=== PATIENT | female | born 1990 | race African-American/Black ===

== ENCOUNTER 2022-11-05 05:35 | Day surgery (SDC) | payer MEDICAID ==
[2022-10-30 14:56] LABS: ALBUMIN 3.4 G/DL (3.4-5.0); ALBUMIN/GLOBULIN RATIO 0.7 (1.1-1.5); ALKALINE PHOSPHATASE 86 IU/L (46-116); BLOOD UREA NITROGEN 11 MG/DL (7-18); CALCIUM 9.2 MG/DL (8.5-10.1); CHLORIDE 106 MMOL/L (99-107); CREATININE 0.55 MG/DL (0.40-0.90); PRE OP ALT 19 U/L (30-65); PRE OP ANION GAP 7 (8-16); PRE OP AST 17 U/L (10-37); PRE OP BILIRUB, TOTAL 0.3 MG/DL (0.0-1.0); PRE OP GLUCOSE 131 MG/DL (70-104); PRE OP POTASSIUM 3.8 MMOL/L (3.4-5.1); PRE OP PROTIME 10.8 SECONDS (9.0-12.0); PRE OP SODIUM 141 MMOL/L (135-145); TOTAL PROTEIN 8.1 G/DL (6.4-8.2); eGFR > 90 ML/MIN
[2022-10-30 14:58] LABS: CLARITY,URINE CLEAR (Clear); COLOR,URINE YELLOW (Yellow); GLUCOSE, URINE NEGATIVE (Neg); KETONES,URINE 40 mg/dl (Neg); LEUKOCYTE ESTERASE ,URINE NEGATIVE (Neg); NITRITES, URINE NEGATIVE (Neg); OCCULT BLOOD,URINE SMALL (Neg); PH,URINE 5.5 (4.8-8.0); PROTEIN,URINE NEGATIVE (Neg); UROBILINOGEN,URINE 0.2 E.U/dL (0.2-1.0)
[2022-10-30 14:59] LABS: UA COLLECTION TYPE CLN CATCH MIDSTREAM
[2022-10-30 14:59] LABS: BASOPHILS # (AUTO) 0.1 X10'3 (0-0.2); BASOPHILS % (AUTO) 0.7 % (0-1); EOSINOPHILS # (AUTO) 0.1 X10'3 (0-0.9); EOSINOPHILS % (AUTO) 0.7 % (0-6); LYMPHOCYTES # (AUTO) 3.1 X10'3 (1.1-4.8); LYMPHOCYTES % (AUTO) 31.5 % (21-51); MEAN CORPUSCULAR HGB CONC 32.4 g/dL (33.0-36.5); MEAN CORPUSCULAR VOLUME 89.3 FL (78-98); MEAN PLATELET VOLUME 7.8 FL (7.4-10.4); MONOCYTES # (AUTO) 0.6 X10'3 (0-0.9); MONOCYTES % (AUTO) 6.1 % (2-12); NEUTROPHILS # (AUTO) 5.9 X10'3 (1.8-7.7); PRE OP HEMATOCRIT 41.2 % (35.0-45.0); PRE OP HEMOGLOBIN 13.4 g/dL (12.0-16.0); PRE OP PLATELET COUNT 383 X10'3 (140-440); RED BLOOD COUNT 4.62 X10'6 (4.20-5.60); RED CELL DISTRIBUTION WIDTH 13.7 % (11.5-14.5)
[2022-10-30 15:04] LABS: BACTERIA,URINE NONE SEEN /HPF (Neg); MUCUS STRANDS FEW /LPF (Neg); RBC,URINE NONE SEEN /HPF (0-2); SQUAMOUS EPITHELIAL CELL,UR FEW /LPF (FEW); WBC,URINE NONE SEEN /HPF (0-4)
[2022-10-30 15:08] LABS: HCG SERUM QL NEGATIVE
[2022-11-05] VITALS (11 sets, daily range): BP systolic 107–153; BP diastolic 79–100
[~2022-11-05] VITALS: Ht 162.6 cm; Wt 104.4 kg
[~2022-11-05 05:35] MED LIST: INSU100I45 SQ; MULT-1085 PO; NPH,100V SQ; famotidine 20mg tablet PO ONE; ringers solution, lacted 1,000 ML IV SCH
[2022-11-05] MEDS ORDERED: LIDOcaine 1% (10mg/ml) 2ml vial ONE (06:22)
[2022-11-05] MEDS ORDERED: BUPIVAcaine/PF 2.5 mg/ml (0.25%) 30ml vial ONE (06:41)
[2022-11-05] MEDS ORDERED: sugammadex 200mg/2ml injection IV ONE (07:19)
[2022-11-05] MEDS ORDERED: midazolam 1 mg/ML 2ml injection ONE (07:23)
[2022-11-05] MEDS ORDERED: fentaNYL/PF 50MCG/1 ML 2ML syringe ONE (07:23)
[2022-11-05] MEDS ORDERED: neostigmine methylsulfate 1 MG/ML 10ml vial ONE (07:25)
[2022-11-05] MEDS ORDERED: rocuronium 10mg/ml inj IV ONE (07:25)
[2022-11-05] MEDS ORDERED: ondansetron/PF 4mg/2ml inj ONE (07:25)
[2022-11-05] MEDS ORDERED: propofol inj 20 ML IV ONE (07:25)
[2022-11-05] MEDS ORDERED: LIDOcaine 2% (20mg/ml) 5ml vial ONE (07:25)
[2022-11-05] MEDS ORDERED: glycopyrrolate 0.2mg/ml inj ONE (07:25)
[2022-11-05] MEDS ORDERED: dexamethasone sod phosphate 4mg/ml inj. ONE (07:25)
[2022-11-05] MEDS ORDERED: morphine 4 MG/ML inj SYRINge IV PRN (07:30)
[2022-11-05] MEDS ORDERED: ondansetron/PF 4mg/2ml inj IV PRN (07:30)
[2022-11-05] MEDS ORDERED: labetalol 20mg/4ml (5mg/ml) syringe IV PRN (07:30)
[2022-11-05] MEDS ORDERED: fentaNYL/PF 50MCG/1 ML 2ML syringe IV PRN ×2 (07:30)
[2022-11-05] MEDS ORDERED: hydrALAZINE 20mg/ml inj. IV PRN (07:30)
[2022-11-05] MEDS ORDERED: ringers solution, lacted 1,000 ML IV SCH (07:30)
[2022-11-05] MEDS ORDERED: morphine 2 MG/ML inj. syringe IV PRN (07:30)
[2022-11-05] MEDS ORDERED: sevoflurane 250ml liquid IH ONE (07:39)
--- NOTE | 2022-11-05 09:03 | NUR ---
Received from OR via [facility]OS[facility] BED TO RECOVERY ROOM 7, accompanied by Anesthesiologist DR KHAN and report given by Anesthesiolgist. PT PRESENTS WITH PIV 20G RIGHT HAND, MAGALIE PAD BETWEEN LEGS, LR RINNING AT 100MLS/HR, SPO2 100% ON 10L MASK, VSS. Addendum: 11/05/22 at 0920 by Nia Montes RN, RN Amended: Links added.
--- NOTE | 2022-11-05 10:13 | NUR ---
I HAVE REVIEWED D/C INSTRUCTIONS WITH PATIENT and they have verbalized understanding patient d/c home with all belongings and family gave transport home. Addendum: 11/05/22 at 1017 by Nia Montes RN, RN Amended: Links added.
== END 2022-11-05 10:13 | disposition home or self-care (01) ==
LOC: PAS 05:35
PROVIDERS: ATTEND Obstetrics & Gynecology
DX: Z30.2 Encounter for sterilization (principal); N83.8 Other noninflammatory disorders of ovary, fallopian tube and broad ligament; E10.9 Type 1 diabetes mellitus without complications; E66.01 Morbid (severe) obesity due to excess calories; Z68.41 Body mass index [BMI] 40.0-44.9, adult; Z98.890 Other specified postprocedural states; Z79.899 Other long term (current) drug therapy; Z79.4 Long term (current) use of insulin; Z79.01 Long term (current) use of anticoagulants; Z83.3 Family history of diabetes mellitus
CPT/HCPCS: 36415; 58670; 80053; 81001; 82948; 84703; 85025; 85610; 85730; 86885; 86900; 86901; 93005; J1100; J2250; J2405; J2704; J2710; J3010; J3490; J7030; J7120; Z7506; Z7508; Z7512; A4618